=== PATIENT | male | born 1980 | race Two or more races ===

== ENCOUNTER 2019-04-23 12:58 | Emergency (ER) | payer SELFPAY ==
[~2019-04-23] VITALS: Ht 165.1 cm; Wt 72.6 kg
[2019-04-23] MEDS ORDERED: Dexamethasone 4mg/ml vial IM ONE (13:30)
[2019-04-23 13:34] VITALS: BP 154/98
--- NOTE | 2019-04-23 13:49 | Emergency Room Report ---
History of Present Illness General Chief Complaint: Allergic Reaction Source: Patient Present Illness HPI 39-year-old male with no significant past medical history here complaining of 1 day of extremely pruritic rash all over his body that started on lower legs and hands. Patient does not recall eating anything out of the ordinary or coming in contact with any allergens. Patient does mention that he is a lot of spicy food and also eats out a lot. Patient has not been to a doctor for a very long time and does not know if he has any history of diabetes or hypertension. She denies chest pain, shortness of breath, palpitation, abdominal pain, nausea vomiting blurred vision at this point. Patient has a blood pressure of 150/90. Denies any pain full rash bleeding from the rash denies anaphylaxis. Has not taken medication for his symptoms Allergies: Coded Allergies: No Known Allergies (Unverified , 04/23/19) Patient History Past Medical History: see triage record Past Surgical History: unable to obtain Pertinent Family History: none Immunizations: UTD Reviewed Nursing Documentation: PMH: Agreed; PSxH: Agreed Nursing Documentation-PMH Past Medical History: No Stated History Review of Systems All Other Systems: negative except mentioned in HPI Physical Exam Vital Signs Date Time Temp Pulse Resp B/P (MAP) Pulse Ox O2 Delivery O2 Flow Rate FiO2 04/23/19 13:01 98.8 90 16 154/98 (116) 97 Room Air Sp02 EP Interpretation: reviewed, normal General Appearance: normal inspection, well appearing, no apparent distress, alert, GCS 15 Head: normocephalic, atraumatic Eyes: bilateral eye normal inspection, bilateral eye PERRL ENT: normal ENT inspection, hearing grossly normal, normal pharynx Neck: normal inspection, full range of motion, supple Respiratory: normal inspection, chest non-tender, lungs clear, normal breath sounds, no rhonchi, no wheezing Cardiovascular #1: normal inspection, normal peripheral pulses, regular rate, rhythm, no edema, no murmur Gastrointestinal: normal inspection, soft, no mass Rectal: deferred Genitourinary: no CVA tenderness Musculoskeletal: normal inspection, back normal, digits/nails normal Neurologic: normal inspection, alert, oriented x3, responsive Psychiatric: normal inspection, judgement/insight normal Skin: warm/dry, palpation normal, rash - uritacaria rash all over body Lymphatic: normal inspection, no adenopathy Medical Decision Making PA Attestation All my diagnosis and treatment plans were reviewed ad discussed with my supervising physician Dr. Jung Diagnostic Impression: Primary Impression: Allergic reaction Additional Impression: Allergic urticaria ER Course 39-year-old male with no significant past medical history here complaining of 1 day of extremely pruritic rash all over his body that started on lower legs and hands. Patient does not recall eating anything out of the ordinary or coming in contact with any allergens. Patient does mention that he is a lot of spicy food and also eats out a lot. Patient has not been to a doctor for a very long time and does not know if he has any history of diabetes or hypertension. She denies chest pain, shortness of breath, palpitation, abdominal pain, nausea vomiting blurred vision at this point. Patient has a blood pressure of 150/90. Denies any pain full rash bleeding from the rash denies anaphylaxis. Has not taken medication for his symptoms Ddx considered but are not limited to: Eczema, scabies, lice, allergic uritacaria, cellulitis, anaphylaxis Vital signs: are WNL, pt. is afebrile H&PE are most consistent with: Allergic urticaria ORDERS: Dexamethasone, prednisone, Benadryl, hydrocortisone ED INTERVENTIONS: Dexamethasone DISCHARGE: At this time pt. is stable for d/c to home. Will provide printed patient care instructions, and any necessary prescriptions. Care plan and follow up instructions have been discussed with the patient prior to discharge. I advised the patient to follow-up with her primary care provider for allergy testing and also overall checkup avoid exposure to new allergens avoid eating spicy food if anaphylaxis return to the emergency room immediately Last Vital Signs Date Time Temp Pulse Resp B/P (MAP) Pulse Ox O2 Delivery O2 Flow Rate FiO2 04/23/19 13:34 90 16 Room Air 04/23/19 13:34 98.8 154/98 97 Disposition: HOME, SELF-CARE Condition: Stable Scripts Diphenhydramine HCl (Benadryl) 25 Mg Capsule 25 MG PO BID, #20 CAP Prov: Sandro Baron 04/23/19 Hydrocortisone/Aloe Vera 1%* (HYDROCORTISONE-ALOE 1% CREAM*) Y Cr 1 APPLIC TOPIC Q6H PRN for Itching, #30 GM Prov: Sandro Baron 04/23/19 Prednisone* (PREDNISONE*) 10 Mg Tablet 10 MG ORAL BID for 10 Days, #10 TAB 0 Refills Prov: Sandro Baron 04/23/19 Patient Instructions: Allergies Additional Instructions: Take medication as directed avoid contact any new allergens follow-up with your primary care provider for allergy panel Sandro Baron Apr 23, 2019 13:49
[2019-04-23] MEDS ORDERED: PREDNISONE10 MG ORAL (13:51)
[2019-04-23] MEDS ORDERED: HYDROCORTISONE-30 GM TOPIC (13:51)
[2019-04-23] MEDS ORDERED: BENADRYL25 M3 PO (13:51)
[2019-04-23 14:02] VITALS: BP 154/98
== END 2019-04-23 14:02 | disposition home or self-care (01) ==
LOC: EMR 13:30
DX: T78.40XA Allergy, unspecified, initial encounter (principal); X58.XXXA Exposure to other specified factors, initial encounter; L50.0 Allergic urticaria
CPT/HCPCS: 99283; J1100